=== PATIENT | female | born 1955 | race Caucasian/White ===

== ENCOUNTER → 2016-05-05 | Outpatient (CLI) | payer MEDICAID ==
[~2016-05-05] MED LIST: 00186-0372-20 IH; ACID REFLUX PILL; ARTHROTEC 775 MG/TAB PO; ASMANEX TW0.22 MG/A1; ASPIR-LOW81 MG PO; ASPIR-LOX325 MG PO; ASPIRIN 81M81 MG/TA2 PO; ASPIRIN E.C. 8181 MG PO; BENTYL 10MG10 MG/CAP PO; CALCIUM600 MG PO; COMBIVENT INH14.7 GM IH; CRESTOR 10MG10 MG PO; DESYREL 50MG50 MG PO; EFFEXOR; FEOSOL65 MG PO; FERATE27 MG PO; FOSINOPRIL SODI10 MG PO; GABAPENTIN; GLUCOPHAGE500 MG/TAB PO; IRON; IRON325 M1 PO; LIPITOR 40MG TA40 MG PO; LIPITOR20 MG PO; LISINOPRIL5 MG PO; LORTAB 5/500 501 TAB PO; MULTI VITAMINS1 TAB PO; MULTIPLE VITAMI1 CAP PO; NATURAL POTASS595 MG PO; NEURONTIN300 MG/CAP PO; NEURONTIN400 MG/CAP PO; NOLVADEX 1010 MG/TAB PO; NORCO 325 MG-51 TAB PO; NORVASC 10MG10 MG PO; PREDNISONE20 MG PO; PRINZIDE 12.5 M1 TAB; PRINZIDE 25 MG-1 TAB PO; PROAIR HFA0.09 MG/AC IH; PROTONIX 40MG T40 MG PO; ROBITUSSIN DM120 ML PO; RT ADVAIR HFA 1112 G IH; SPIRIVA RESPIMAT4 GM IH; SYNTHROID0.1 MG/TAB PO; SYNTHROID0.175 MG PO; TAMIFLU 75MG75 MG PO; TRAMADOL50 MG PO; TRICOR 48MG48 MG PO; VENTOLIN0.09 MG IH; VICODIN 5/5001 UDTAB PO; VITAMIN C500 MG PO; ZESTRIL 10MG10 MG PO; ZESTRIL 20MG TA20 MG PO; ZITHROMAX500 MG PO; ZOCOR 40MG40 MG PO; ZOLOFT 100MG100 MG PO; ZOLOFT 50MG50 MG PO; [UNRECOGNIZED DRUG - REMARK]
== END ==
LOC: COL.RAD 05-02 14:15
DX: K76.0 Fatty (change of) liver, not elsewhere classified (principal); R10.11 Right upper quadrant pain

== ENCOUNTER 2016-08-08 09:13 | Outpatient (RCR) | payer OTHER | END 2016-10-02 | LOC: WSOH | DX: S80.01XA Contusion of right knee, initial encounter (principal); S50.01XA Contusion of right elbow, initial encounter; M25.511 Pain in right shoulder; W01.0XXA Fall on same level from slipping, tripping and stumbling without subsequent striking against object, initial encounter; Y99.0 Civilian activity done for income or pay | CPT/HCPCS: 24091; A6549 ==

== ENCOUNTER 2017-01-02 11:54 | Emergency (ER) | payer OTHER ==
[~2017-01-02] VITALS: Ht 165.1 cm; Wt 120.4 kg
[~2017-01-02 11:54] MED LIST changes: -IRON325 M1 PO; +NATURAL IRON65 MG PO; -SYNTHROID0.1 MG/TAB PO; +SYNTHROID0.2 MG/TAB PO
[2017-01-02 11:56] VITALS: TEMP 98.9
[2017-01-02] MEDS ORDERED: BUSPAR5 MG PO (13:42)
[2017-01-02] MEDS ORDERED: GLUCOPHAGE1000 MG PO (13:42)
[2017-01-02] MEDS ORDERED: CYMBALTA 60MG60 MG PO (13:46)
[2017-01-02] MEDS ORDERED: NORCO 325 MG-51 TAB PO (14:48)
[2017-01-02 15:00] VITALS: BP 143/81; PULSE 86
== END 2017-01-02 15:00 | disposition home or self-care (01) ==
LOC: COL.ER 11:54
DX: S83.91XA Sprain of unspecified site of right knee, initial encounter (principal); S90.31XA Contusion of right foot, initial encounter; S80.01XA Contusion of right knee, initial encounter; I10 Essential (primary) hypertension; E11.9 Type 2 diabetes mellitus without complications; F41.9 Anxiety disorder, unspecified; F32.9 Major depressive disorder, single episode, unspecified; Z79.82 Long term (current) use of aspirin; Z79.84 Long term (current) use of oral hypoglycemic drugs; V47.5XXA Car driver injured in collision with fixed or stationary object in traffic accident, initial encounter; Y92.481 Parking lot as the place of occurrence of the external cause

== ENCOUNTER 2017-01-30 17:02 | Emergency (ER) | payer OTHER, MEDICAID ==
[~2017-01-30] VITALS: Ht 162.6 cm; Wt 112.7 kg
[~2017-01-30 17:02] MED LIST changes: +BUSPAR5 MG PO; +CYMBALTA 60MG60 MG PO; +GLUCOPHAGE1000 MG PO
[2017-01-30 17:07] VITALS: BP 177/80; TEMP 98.7
[2017-01-30] MEDS ORDERED: FLEXERIL 1010 MG/TAB PO (18:37)
[2017-01-30 18:52] VITALS: PULSE 89
== END 2017-01-30 18:54 | disposition home or self-care (01) ==
LOC: COL.ER 17:02
DX: S13.9XXA Sprain of joints and ligaments of unspecified parts of neck, initial encounter (principal); E11.9 Type 2 diabetes mellitus without complications; K58.9 Irritable bowel syndrome, unspecified; I10 Essential (primary) hypertension; E03.9 Hypothyroidism, unspecified; J45.909 Unspecified asthma, uncomplicated; F17.210 Nicotine dependence, cigarettes, uncomplicated; F32.9 Major depressive disorder, single episode, unspecified; Z79.84 Long term (current) use of oral hypoglycemic drugs; Z98.51 Tubal ligation status; Z87.891 Personal history of nicotine dependence; Z85.3 Personal history of malignant neoplasm of breast; V89.2XXA Person injured in unspecified motor-vehicle accident, traffic, initial encounter

== ENCOUNTER → 2017-03-16 | Outpatient (CLI) | payer MEDICAID ==
[~2017-03-16] MED LIST changes: +FLEXERIL 1010 MG/TAB PO
== END ==
LOC: COL.RAD 07:36
DX: R10.11 Right upper quadrant pain (principal)
CPT/HCPCS: A9537; J2270

== ENCOUNTER 2017-06-20 07:22 | Day surgery (SDC) | payer MEDICAID ==
[2017-06-20] VITALS (8 sets, daily range): BP systolic 110–133; BP diastolic 58–75; PULSE 85–88; TEMP 98.2–99.3
[~2017-06-20] VITALS: Ht 165.1 cm; Wt 116.5 kg
[2017-06-20] MEDS ORDERED: PROAIR HFA0.09 MG/AC IH (08:47)
[2017-06-20] MEDS ORDERED: RT ADVAIR HFA 1112 G IH (08:48)
[2017-06-20] MEDS ORDERED: SYNTHROID0.075 MG/T PO (08:51)
== END 2017-06-20 15:25 | disposition home or self-care (01) ==
LOC: SDCO 07:22
DX: K81.1 Chronic cholecystitis (principal); R16.0 Hepatomegaly, not elsewhere classified; K74.60 Unspecified cirrhosis of liver; E66.01 Morbid (severe) obesity due to excess calories; Z68.41 Body mass index [BMI] 40.0-44.9, adult; I10 Essential (primary) hypertension; E03.9 Hypothyroidism, unspecified; Z85.3 Personal history of malignant neoplasm of breast; Z92.3 Personal history of irradiation; Z92.21 Personal history of antineoplastic chemotherapy; Z79.01 Long term (current) use of anticoagulants; Z79.82 Long term (current) use of aspirin; Z80.1 Family history of malignant neoplasm of trachea, bronchus and lung; K21.9 Gastro-esophageal reflux disease without esophagitis; J45.909 Unspecified asthma, uncomplicated; E11.9 Type 2 diabetes mellitus without complications; Z79.84 Long term (current) use of oral hypoglycemic drugs; G43.909 Migraine, unspecified, not intractable, without status migrainosus; Z79.899 Other long term (current) drug therapy; K76.0 Fatty (change of) liver, not elsewhere classified
CPT/HCPCS: J1100; J2175; J2405; J2704; J3010; J7030

== ENCOUNTER 2017-07-01 18:27 | Inpatient (IN) | payer MEDICAID ==
[~2017-07-01] VITALS: Ht 165.1 cm; Wt 107.0 kg
[~2017-07-01 18:27] MED LIST changes: +SYNTHROID0.075 MG/T PO
[2017-07-01 19:20] LABS: BASO # 0.1 (0.0-0.2); BASO % 0.8 % (0.0-2.0); EOS # 0.3 (0.0-0.7); EOS % 3.6 % (0-4.0); GRAN % 69.4 % (42.2-75.2); LYMPH # 1.3 (1.2-3.4); LYMPH % 14.6 % (20.0-51.0); MEAN CELL VOLUME 87 fl (80.0-100.0); MEAN CORPUSCULAR HEMOGLOBIN 28 pg (27.0-31.0); MEAN CORPUSCULAR HGB CONC 32 g/dl (33.0-37.0); MEAN PLATELET VOLUME 11.7 fl (7.4-10.4); MONO % 11.3 % (1.7-9.3); PLATELET COUNT 176 K/mm3 (130-400)
[2017-07-01 19:28] LABS: ALBUMIN 3.6 gm/dL (3.5-5.0); C-REACTIVE PROTEIN 4.3 mg/dL (0.0-0.9); CALCIUM 9.1 mg/dL (8.4-10.2); CREATININE, serum 0.77 mg/dL (0.52-1.25); MAGNESIUM 1.9 mg/dL (1.6-2.3); POTASSIUM 3.4 mmol/L (3.4-5.0); TOTAL PROTEIN 8.2 gm/dL (6.4-8.2)
[2017-07-01 19:31] LABS: COLLECTION METHOD CLEAN CATCH
[2017-07-01 19:36] LABS: MUCOUS Present /lpf; PH 6 (5-8); URINE APPEARANCE Hazy; URINE BACTERIA None Seen /hpf; URINE BILIRUBIN Negative (NEGATIVE); URINE BLOOD Negative (NEGATIVE); URINE COLOR Yellow; URINE GLUCOSE Negative (NEGATIVE); URINE KETONE Negative (NEGATIVE); URINE LEUKOCYTE ESTERASE Trace (NEGATIVE); URINE NITRATE Negative (NEGATIVE); URINE PROTEIN(semi-quant) 1+ (NEGATIVE); URINE RBC 0-2 /hpf; URINE UROBILINOGEN >=4.0 mg/dL (NEGATIVE)
[2017-07-01 21:54] VITALS: BP 135/59; PULSE 101; TEMP 100.4
[2017-07-01] MEDS ORDERED: NORVASC 10MG10 MG PO (22:29)
[2017-07-01] MEDS ORDERED: MOTRIN 200200 MG/TAB PO (22:30)
[2017-07-01] MEDS ORDERED: DIABETIC PILL (22:38)
[2017-07-01] MEDS ORDERED: AMARYL 2MG T2 MG/TAB PO (23:22)
[2017-07-01 23:57] VITALS: BP 101/85; PULSE 63; TEMP 97.3
[2017-07-02 03:48] VITALS: BP 135/61; PULSE 99; TEMP 99.3
[2017-07-02 06:31] LABS: BASO # 0.1 (0.0-0.2); BASO % 0.9 % (0.0-2.0); EOS # 0.3 (0.0-0.7); EOS % 4.1 % (0-4.0); GRAN # 4.1 (1.4-6.5); GRAN % 58.2 % (42.2-75.2); HEMOGLOBIN 10.2 g/dl (12.5-16.0); LYMPH # 1.6 (1.2-3.4); LYMPH % 22.6 % (20.0-51.0); MEAN CELL VOLUME 90 fl (80.0-100.0); MEAN CORPUSCULAR HEMOGLOBIN 28 pg (27.0-31.0); MEAN CORPUSCULAR HGB CONC 32 g/dl (33.0-37.0); MEAN PLATELET VOLUME 11.8 fl (7.4-10.4); MONO % 13.9 % (1.7-9.3); PLATELET COUNT 156 K/mm3 (130-400); RED BLOOD COUNT 3.62 M/mm3 (4.10-5.30); REDCELL DISTRIBUTION WIDTH-CV 16.3 % (11.5-14.5)
[2017-07-02 06:38] LABS: HEMATOCRIT 32.4 % (37.0-47.0)
[2017-07-02 06:46] LABS: ALBUMIN 3.1 gm/dL (3.5-5.0); BILIRUBIN,TOTAL 0.6 mg/dL (0.0-1.0); CALCIUM 8.3 mg/dL (8.4-10.2); CREATININE, serum 0.67 mg/dL (0.52-1.25); TOTAL PROTEIN 6.9 gm/dL (6.4-8.2)
[2017-07-02 09:01] VITALS: BP 114/55; PULSE 105; TEMP 99.7
[2017-07-02 12:37] VITALS: BP 138/97; PULSE 95; TEMP 98.9
[2017-07-02 15:39] VITALS: BP 108/49; PULSE 98; TEMP 97.8
[2017-07-02 20:14] VITALS: BP 101/62; PULSE 102; TEMP 99.7
[2017-07-02 23:11] VITALS: BP 144/67; PULSE 99; TEMP 98.9
[2017-07-03 04:21] VITALS: BP 131/56; PULSE 90; TEMP 98.5
[2017-07-03 07:07] LABS: CALCIUM 8.6 mg/dL (8.4-10.2); CREATININE, serum 0.65 mg/dL (0.52-1.25); POTASSIUM 3.6 mmol/L (3.4-5.0)
[2017-07-03 07:14] LABS: BASO # 0.1 (0.0-0.2); BASO % 0.8 % (0.0-2.0); EOS # 0.4 (0.0-0.7); EOS % 6.1 % (0-4.0); GRAN # 3.2 (1.4-6.5); GRAN % 49.9 % (42.2-75.2); HEMOGLOBIN 10.1 g/dl (12.5-16.0); LYMPH # 2.1 (1.2-3.4); LYMPH % 32.9 % (20.0-51.0); MEAN CELL VOLUME 91 fl (80.0-100.0); MEAN CORPUSCULAR HEMOGLOBIN 29 pg (27.0-31.0); MEAN CORPUSCULAR HGB CONC 31 g/dl (33.0-37.0); MEAN PLATELET VOLUME 12.2 fl (7.4-10.4); MONO # 0.6 (0.1-0.6); PLATELET COUNT 154 K/mm3 (130-400); RED BLOOD COUNT 3.53 M/mm3 (4.10-5.30); REDCELL DISTRIBUTION WIDTH-CV 16.8 % (11.5-14.5)
[2017-07-03 07:16] LABS: HEMATOCRIT 32.2 % (37.0-47.0)
[2017-07-03 08:46] VITALS: BP 107/47; PULSE 97; TEMP 98.7
[2017-07-03] MEDS ORDERED: TYLENOL 325MG325 MG PO (09:49)
[2017-07-03] MEDS ORDERED: TESSALON P100 MG/CAP PO (09:50)
[2017-07-03] MEDS ORDERED: TUSS PO (09:51)
[2017-07-03 11:00] VITALS: BP 121/47; PULSE 93; TEMP 98.9
[2017-07-03 15:17] VITALS: BP 106/53; PULSE 99; TEMP 98.6
== END 2017-07-03 17:00 | disposition home or self-care (01) | DRG 153 ==
LOC: COL.ER 18:27 → MEDICAL 21:06
PROVIDERS: Emergency Medicine; Nurse Practitioner Family; Physician Assistant
DX: J06.9 Acute upper respiratory infection, unspecified (principal); B97.4 Respiratory syncytial virus as the cause of diseases classified elsewhere; I10 Essential (primary) hypertension; E11.9 Type 2 diabetes mellitus without complications; E66.01 Morbid (severe) obesity due to excess calories; Z68.39 Body mass index [BMI] 39.0-39.9, adult; Z85.3 Personal history of malignant neoplasm of breast; J45.909 Unspecified asthma, uncomplicated; Z87.891 Personal history of nicotine dependence; F43.12 Post-traumatic stress disorder, chronic; E87.6 Hypokalemia
CPT/HCPCS: 99223-AI; 99239; J1650; J2543; J3010; J3370; J7030; J7040; J7050; Q9967

== ENCOUNTER → 2017-09-25 | Outpatient (CLI) | payer MEDICAID ==
[~2017-09-25] MED LIST changes: +AMARYL 2MG T2 MG/TAB PO; +DIABETIC PILL; +MOTRIN 200200 MG/TAB PO; +TESSALON P100 MG/CAP PO; +TUSS PO; +TYLENOL 325MG325 MG PO
== END ==
LOC: COL.RAD 10:13
DX: C50.211 Malignant neoplasm of upper-inner quadrant of right female breast (principal); E11.9 Type 2 diabetes mellitus without complications; K44.9 Diaphragmatic hernia without obstruction or gangrene; R16.0 Hepatomegaly, not elsewhere classified; R59.1 Generalized enlarged lymph nodes; N28.89 Other specified disorders of kidney and ureter; M46.1 Sacroiliitis, not elsewhere classified; Z98.890 Other specified postprocedural states; Z90.49 Acquired absence of other specified parts of digestive tract
CPT/HCPCS: Q9967

== ENCOUNTER 2019-01-27 17:25 | Emergency (ER) | payer OTHER ==
[~2019-01-27] VITALS: Ht 165.1 cm; Wt 111.4 kg
[2019-01-27 18:00] VITALS: BP 196/90
[2019-01-27 18:44] LABS: BASO # 0.1 (0.0-0.2); BASO % 0.7 % (0.0-2.0); EOS # 0.4 (0.0-0.7); EOS % 4.8 % (0-4.0); GRAN # 4.4 (1.4-6.5); GRAN % 54.4 % (42.2-75.2); HEMOGLOBIN 10.9 g/dl (12.5-16.0); LYMPH # 2.3 (1.2-3.4); LYMPH % 28.2 % (20.0-51.0); MEAN CELL VOLUME 86 fl (80.0-100.0); MEAN CORPUSCULAR HEMOGLOBIN 26 pg (27.0-31.0); MEAN CORPUSCULAR HGB CONC 31 g/dl (33.0-37.0); MEAN PLATELET VOLUME 11.5 fl (7.4-10.4); MONO # 0.9 (0.1-0.6); MONO % 11.5 % (1.7-9.3); PLATELET COUNT 172 K/mm3 (130-400); RED BLOOD COUNT 4.15 M/mm3 (4.10-5.30); REDCELL DISTRIBUTION WIDTH-CV 16.2 % (11.5-14.5)
[2019-01-27 18:48] LABS: HEMATOCRIT 35.6 % (37.0-47.0)
[2019-01-27 18:51] LABS: INR 1.1 (0.8-3.0); PROTHROMBIN TIME 12.8 SECONDS (9.7-12.8)
[2019-01-27 18:58] LABS: ALANINE AMINOTRANSFERASE 34 U/L (9-52); ALBUMIN 4.1 gm/dL (3.5-5.0); ALKALINE PHOSPHATASE 118 U/L (50-136); ANION GAP 9 mmol/L (7-16); AST,SGOT 72 U/L (15-37); BILIRUBIN,TOTAL 0.9 mg/dL (0.0-1.0); BLOOD UREA NITROGEN 10 mg/dL (7-17); CALCIUM 9.1 mg/dL (8.4-10.2); CARBON DIOXIDE 28 mmol/L (22-30); CHLORIDE 106 mmol/L (98-107); GLUCOSE 81 mg/dL (74-106); LIPASE 106 U/L (23-300); POTASSIUM 3.7 mmol/L (3.4-5.0); SODIUM 142 mmol/L (137-145); TOTAL PROTEIN 8.1 gm/dL (6.4-8.2)
[2019-01-27 19:13] LABS: TROPONIN-I < 0.012 ng/mL (0.000-0.035)
[2019-01-27] MEDS ORDERED: PHENERGAN 25 TA25 MG PO (21:58)
[2019-01-27] MEDS ORDERED: PRINIVIL2.5 MG PO (22:02)
[2019-01-27 23:55] VITALS: PULSE 100
== END 2019-01-27 23:55 | disposition home or self-care (01) ==
LOC: COL.ER 17:25
PROVIDERS: Emergency Medicine
DX: R07.89 Other chest pain (principal); R10.13 Epigastric pain
CPT/HCPCS: C9113; J2405; J7030; J8540; Q9967

== ENCOUNTER → 2020-03-18 | Outpatient (CLI) | payer MEDICARE, OTHER ==
[~2020-03-18] MED LIST changes: +PHENERGAN 25 TA25 MG PO; +PRINIVIL2.5 MG PO
== END ==
LOC: COL.RAD 13:31
DX: K57.30 Diverticulosis of large intestine without perforation or abscess without bleeding (principal); R16.1 Splenomegaly, not elsewhere classified; K76.9 Liver disease, unspecified; Z90.49 Acquired absence of other specified parts of digestive tract
CPT/HCPCS: Q9967

== ENCOUNTER → 2021-01-12 | Outpatient (CLI) | payer MEDICARE, OTHER | LOC: COL.RAD 13:20 | DX: M48.02 Spinal stenosis, cervical region (principal); M50.20 Other cervical disc displacement, unspecified cervical region ==

== ENCOUNTER → 2021-03-04 | Outpatient (CLI) | payer BC, MEDICARE, OTHER ==
[~2021-03-04] MED LIST changes: +COZAAR100 MG PO; +MOBIC 7.5MG7.5 MG PO; +SYNTHROID0.125 MG/T PO; -SYNTHROID0.2 MG/TAB PO
[2021-03-04 15:25] LABS: BASO # 0.1 K/mm3 (0.0-0.2); BASO % 1.2 % (0.0-2.0); EOS # 0.4 K/mm3 (0.0-0.7); EOS % 5.6 % (0.0-4.0); GRAN # 3.9 K/mm3 (1.4-6.5); GRAN % 57.9 % (42.2-75.2); LYMPH # 1.5 K/mm3 (1.2-3.4); LYMPH % 22.6 % (20.0-51.0); MEAN CELL VOLUME 80 fl (80.0-100.0); MEAN CORPUSCULAR HGB CONC 30 g/dl (33.0-37.0); MEAN PLATELET VOLUME 10.9 fl (7.4-10.4); MONO # 0.8 K/mm3 (0.1-0.6); MONO % 12.4 % (1.7-9.3); PLATELET COUNT 207 K/mm3 (130-400); RED BLOOD COUNT 3.89 M/mm3 (4.10-5.30); REDCELL DISTRIBUTION WIDTH-CV 16.5 % (11.5-14.5)
[2021-03-04 15:49] LABS: HEMATOCRIT 31.2 % (37.0-47.0); HEMOGLOBIN 9.2 g/dl (12.5-16.0); MEAN CORPUSCULAR HEMOGLOBIN 24 pg (27-31)
== END ==
LOC: COL.LAB 14:49
PROVIDERS: Family Medicine
DX: D64.9 Anemia, unspecified (principal); R06.00 Dyspnea, unspecified

== ENCOUNTER 2021-03-18 15:00 | Outpatient (RCR) | payer MEDICARE, OTHER, BC ==
[2021-03-08 13:19] VITALS: BP 127/80; PULSE 91; TEMP 98.6
[2021-03-10 15:00] VITALS: BP 148/82; PULSE 80; TEMP 97.9
[2021-03-14 15:10] VITALS: BP 146/77; PULSE 85; TEMP 98.1
[2021-03-16 13:40] VITALS: BP 156/61; PULSE 89
[2021-03-16 14:10] VITALS: BP 156/61; PULSE 89
[~2021-03-18] VITALS: Ht 165.1 cm; Wt 125.1 kg
[2021-03-18 15:20] VITALS: BP 134/64; PULSE 86; TEMP 98
== END 2021-03-18 15:39 ==
LOC: EUO 15:00
DX: D50.9 Iron deficiency anemia, unspecified (principal)
CPT/HCPCS: J1756